=== PATIENT | male | born 1985 | race Two or more races ===

== ENCOUNTER 2022-04-18 04:50 | Emergency (ER) | payer BC ==
[~2022-04-18] VITALS: Ht 180.3 cm; Wt 85.3 kg
[2022-04-18 04:51] VITALS: BP 195/107
--- NOTE | 2022-04-18 05:00 | NUR ---
PT AMB TO ER BED 05.
--- NOTE | 2022-04-18 05:13 | NUR ---
DR. TAN AT BEDSIDE EVALUATING PT.
--- NOTE | 2022-04-18 05:22 | NUR ---
36YR OLD MALE BIB SELF C/O "HIGH BLOOD PRESSURE" PT IS A&OX4 HX OF HTN. STATES HE DOESNT TAKE MEDS . PT WAS DRIVING TO WORK HAS SLIGHT SEBASTIAN . DENIES CP OR SOB. PT ON BEDSIDE MONITOR. HOB ELEVATED. RESP EVEN AND UNLABORED. NKDA HTN
[2022-04-18] MEDS ORDERED: ATA25 PO (05:24)
--- NOTE | 2022-04-18 05:40 | NUR ---
Patient discharged with v/s stable. Written and verbal after care instructions given and explained. Patient verbalized understanding. Ambulatory with steady gait. All questions addressed prior to discharge. Advised to follow up with PMD.
== END 2022-04-18 05:40 | disposition home or self-care (01) ==
LOC: MED 04:50
DX: I10 Essential (primary) hypertension (principal); F41.9 Anxiety disorder, unspecified; Z72.89 Other problems related to lifestyle
CPT/HCPCS: 99283